=== PATIENT | male | born 1960 ===

== ENCOUNTER 2022-01-27 09:00 | Inpatient (IN) | payer OTHER ==
[~2022-01-27] VITALS: Ht 172.7 cm; Wt 97.5 kg
[2022-01-27] MEDS ORDERED: PROTONIX40 MG PO (11:43)
[2022-01-27] MEDS ORDERED: LEVO-T75 MCG PO (11:43)
[2022-01-27] MEDS ORDERED: LIPITOR20 MG PO (11:43)
[2022-01-27] MEDS ORDERED: NORTRIPTYLINE H75 MG PO (11:44)
[2022-01-27] MEDS ORDERED: ZOLOFT100 MG PO (11:44)
[2022-01-27] MEDS ORDERED: ESTAZOLAM2 MG PO (11:44)
[2022-01-27] MEDS ORDERED: CLONAZEPAM1 MG PO (11:45)
[2022-01-27] MEDS ORDERED: LATANOPROST 0.7.5 ML OP (11:45)
[2022-01-30] MEDS ORDERED: LATANOPROST2.5 ML (08:31)
[2022-02-01] MEDS ORDERED: ULTRAM50 MG PO (08:13)
[2022-02-01] MEDS ORDERED: TYLENOL ARTHRI650 MG PO (08:13)
[2022-02-01] MEDS ORDERED: NEURONTIN300 MG PO (08:13)
[2022-02-01] MEDS ORDERED: MIRALAX17 GM PO (08:13)
== END 2022-02-05 11:18 | disposition home or self-care (01) | DRG 330 ==
LOC: SURG 01-29 09:00 → O/R 01-29 11:42 → SURH 01-29 11:42 → SURG 01-29 16:00 → SURH 01-29 22:19
PROVIDERS: ADMIT Surgery; ATTEND Surgery
PROC: 0WJF4ZZ Inspection of Abdominal Wall, Percutaneous Endoscopic Approach (ICD-10-PCS; 2022-01-29)
PROC: 0WQF0ZZ Repair Abdominal Wall, Open Approach (ICD-10-PCS; 2022-01-29)
PROC: 0DB80ZZ Excision of Small Intestine, Open Approach (ICD-10-PCS; 2022-01-29)
PROC: 0KRL07Z Replacement of Left Abdomen Muscle with Autologous Tissue Substitute, Open Approach (ICD-10-PCS; 2022-01-29)
PROC: 0WQF0ZZ Repair Abdominal Wall, Open Approach (ICD-10-PCS; principal; 2022-01-29 18:20)
PROC: BW21YZZ Computerized Tomography (CT Scan) of Abdomen and Pelvis using Other Contrast (ICD-10-PCS; 2022-02-03)
DX: K43.0 Incisional hernia with obstruction, without gangrene (principal); K55.8 Other vascular disorders of intestine; K42.0 Umbilical hernia with obstruction, without gangrene; Z20.822 Contact with and (suspected) exposure to COVID-19

== ENCOUNTER 2022-03-10 14:03 | Emergency (ER) | payer OTHER ==
[~2022-03-10] VITALS: Ht 172.7 cm; Wt 90.7 kg
[~2022-03-10 14:03] MED LIST: CLONAZEPAM1 MG PO; ESTAZOLAM2 MG PO; LATANOPROST 0.7.5 ML OP; LATANOPROST2.5 ML; LEVO-T75 MCG PO; LIPITOR20 MG PO; MIRALAX17 GM PO; NEURONTIN300 MG PO; NORTRIPTYLINE H75 MG PO; PROTONIX40 MG PO; TYLENOL ARTHRI650 MG PO; ULTRAM50 MG PO; ZOLOFT100 MG PO
[2022-03-10] MEDS ORDERED: TIROSINT75 MCG PO (14:37)
[2022-03-10] MEDS ORDERED: PROTONIX40 M1 PO (14:37)
[2022-03-10] MEDS ORDERED: PAMELOR50 M1 PO (14:38)
[2022-03-10] MEDS ORDERED: LIPITOR20 MG PO (14:38)
[2022-03-10] MEDS ORDERED: CLONAZEPAM1 M1 PO (14:39)
[2022-03-10] MEDS ORDERED: SERTRALINE20 MG/1 ML (14:39)
== END 2022-03-10 17:11 | disposition home or self-care (01) ==
LOC: ER 14:03
DX: T81.41XA Infection following a procedure, superficial incisional surgical site, initial encounter (principal); Z98.890 Other specified postprocedural states